=== PATIENT | male | born 1960 | race Caucasian/White ===

== ENCOUNTER 2021-07-31 23:59 | Emergency (ER) | payer OTHER ==
[2021-08-01 00:32] LABS: #Eosinphils 0.3 10x3/uL (0.0-0.5); #Monocytes 1.1 10x3/uL (0.0-1.1); #Neutrophils 7.2 10x3/uL (1.5-8.4); %Basophils 0.4 % (0.0-2.0); %Eosinophils 2.9 % (0.0-6.0); %Lymphocytes 18.7 % (18.0-47.0); %Monocytes 10.1 % (0.0-10.0); %Neutrophils 67.3 % (40.0-75.0); Hemoglobin 14.9 g/dL (13.5-17.5); Mean Corpuscular HGB CONC 34.3 g/dL (32.0-36.0); Mean Corpuscular Hemoglobin 28.9 pg (27.0-33.0); Mean Corpuscular Volume 84.5 fl (81.2-95.1); Mean Platelet Volume 8.8 fl (7.4-10.4); Platelet Count 285 10x3/uL (150-450); RBC Distribution Width 12.9 % (11.5-14.5); Red Blood Cell (RBC) Count 5.15 10x6/uL (4.32-5.72); White Blood Cell (WBC) Count 10.6 10x3/uL (3.5-10.5)
[2021-08-01] MEDS ORDERED: Aspirin 325 MG TAB ONE (00:34)
[2021-08-01] MEDS ORDERED: Ketorolac Tromethamine 30 MG/ML VIAL ONE (00:34)
[2021-08-01 00:47] LABS: ALT (SGPT) 42 U/L (8-55); AST (SGOT) 34 U/L (5-34); Acetaminophen Less than 6.0 mcg/mL (10.0-30.0); Alcohol Less than 10 mg/dL (Less than 10); Alkaline Phosphatase 74 U/L (40-110); Anion Gap 13 mmol/L (10-20); BUN (Urea Nitrogen) 15 mg/dL (8.4-25.7); Bilirubin, Total 0.4 mg/dL (0.2-1.2); Calc. Creatinine Clearance 0 mL/min (70-130); Calcium 9.3 mg/dL (7.8-10.44); Carbon Dioxide 25 mmol/L (23-31); Chloride 102 mmol/L (98-107); Globulin 3.9 g/dL (2.4-3.5); Glucose 200 mg/dL (80-115); Lipase 26 U/L (8-78); Potassium 4.3 mmol/L (3.5-5.1); Protein, Total 7.9 g/dL (5.8-8.1); Salicylate Less than 8.0 mg/dL (15.0-30.0); Sodium 136 mmol/L (136-145)
[2021-08-01 02:07] LABS: Troponin I Less than 0.010 ng/mL (< 0.028)
== END 2021-08-01 02:59 | disposition home or self-care (01) ==
LOC: CSHERS 23:59
DX: R07.89 Other chest pain (principal); I10 Essential (primary) hypertension; E11.9 Type 2 diabetes mellitus without complications
CPT/HCPCS: 36416; 71045; 80053; 80307; 83690; 83880; 84484; 85025; 93005; 96372; J1885

== ENCOUNTER 2021-08-23 12:19 | Emergency (ER) | payer OTHER ==
[2021-08-23 13:54] LABS: #Eosinphils 0.2 10x3/uL (0.0-0.5); #Monocytes 0.8 10x3/uL (0.0-1.1); #Neutrophils 4.8 10x3/uL (1.5-8.4); %Basophils 0.3 % (0.0-2.0); %Eosinophils 3.1 % (0.0-6.0); %Lymphocytes 25.5 % (18.0-47.0); %Monocytes 9.8 % (0.0-10.0); %Neutrophils 60.9 % (40.0-75.0); Hemoglobin 15.5 g/dL (13.5-17.5); Mean Corpuscular HGB CONC 33.2 g/dL (32.0-36.0); Mean Corpuscular Hemoglobin 28.5 pg (27.0-33.0); Mean Corpuscular Volume 85.8 fl (81.2-95.1); Mean Platelet Volume 8.8 fl (7.4-10.4); Platelet Count 277 10x3/uL (150-450); RBC Distribution Width 13.4 % (11.5-14.5); Red Blood Cell (RBC) Count 5.44 10x6/uL (4.32-5.72); White Blood Cell (WBC) Count 7.8 10x3/uL (3.5-10.5)
[2021-08-23 14:11] LABS: ALT (SGPT) 28 U/L (8-55); AST (SGOT) 23 U/L (5-34); Alkaline Phosphatase 61 U/L (40-110); Anion Gap 11 mmol/L (10-20); BUN (Urea Nitrogen) 8 mg/dL (8.4-25.7); Bilirubin, Total 0.4 mg/dL (0.2-1.2); Calc. Creatinine Clearance 0 mL/min (70-130); Calcium 9.3 mg/dL (7.8-10.44); Carbon Dioxide 27 mmol/L (23-31); Chloride 101 mmol/L (98-107); Globulin 3.9 g/dL (2.4-3.5); Glucose 245 mg/dL (80-115); Lipase 6 U/L (8-78); Potassium 4.3 mmol/L (3.5-5.1); Protein, Total 7.9 g/dL (5.8-8.1); Sodium 135 mmol/L (136-145)
== END 2021-08-23 15:31 ==
LOC: CSHERS 12:19
DX: U07.1 COVID-19 (principal); E11.9 Type 2 diabetes mellitus without complications; I10 Essential (primary) hypertension; F17.200 Nicotine dependence, unspecified, uncomplicated; Z79.82 Long term (current) use of aspirin; Z79.4 Long term (current) use of insulin
CPT/HCPCS: 36415; 70450; 71045; 80053; 82140; 83690; 84443; 84484; 85025; 93005

== ENCOUNTER 2022-01-25 06:17 | Emergency (ER) | payer OTHER ==
[2022-01-25 06:42] LABS: #Eosinphils 0.1 10x3/uL (0.0-0.5); #Monocytes 0.7 10x3/uL (0.0-1.1); #Neutrophils 3.6 10x3/uL (1.5-8.4); %Basophils 0.3 % (0.0-2.0); %Eosinophils 1.7 % (0.0-6.0); %Lymphocytes 30.4 % (18.0-47.0); %Monocytes 11.1 % (0.0-10.0); %Neutrophils 56.2 % (40.0-75.0); Hemoglobin 14.4 g/dL (13.5-17.5); Mean Corpuscular HGB CONC 35.3 g/dL (32.0-36.0); Mean Corpuscular Volume 82.1 fl (81.2-95.1); Mean Platelet Volume 8.6 fl (7.4-10.4); Platelet Count 275 10x3/uL (150-450); Red Blood Cell (RBC) Count 4.97 10x6/uL (4.32-5.72); White Blood Cell (WBC) Count 6.3 10x3/uL (3.5-10.5)
[2022-01-25 07:00] LABS: Bilirubin Neg (Negative); Blood, Urine Negative (Negative); Clarity Clear (Clear); Glucose, Urine (Dipstick) >=1000 mg/dL (Negative); Ketone, Urine Negative (Negative); Leukocyte Negative (Negative); Nitrite Negative (Negative); Protein, Urine (Dipstick) 15 mg/dl (Neg-Trace); Urobilinogen Normal mg/dL (Less than 2)
[2022-01-25 07:05] LABS: ALT (SGPT) 75 U/L (8-55); AST (SGOT) 37 U/L (5-34); Acetaminophen Less than 10.0 mcg/mL (10.0-30.0); Albumin 3.9 g/dL (3.4-4.8); Alcohol Less than 10 mg/dL (Less than 10); Alkaline Phosphatase 59 U/L (40-110); Anion Gap 16 mmol/L (10-20); BUN (Urea Nitrogen) 16 mg/dL (8.4-25.7); Bilirubin, Total 0.3 mg/dL (0.2-1.2); Calc. Creatinine Clearance 0 mL/min (70-130); Carbon Dioxide 20 mmol/L (23-31); Chloride 99 mmol/L (98-107); Globulin 3.2 g/dL (2.4-3.5); Glucose 479 mg/dL (80-115); Potassium 4.3 mmol/L (3.5-5.1); Protein, Total 7.1 g/dL (5.8-8.1); Salicylate Less than 8.0 mg/dL (15.0-30.0); Sodium 131 mmol/L (136-145)
[2022-01-25 07:08] LABS: Amphetamine Not Detected (NotDetected); Barbiturates Screen Not Detected (NotDetected); Benzodiazepine Screen Not Detected (NotDetected); Cocaine Metabolite Screen Not Detected (NotDetected); Methadone Not Detected (NotDetected); Methamphetamine Not Detected (NotDetected); Opiate Screen Not Detected (NotDetected); Oxycodone Screen Not Detected (NotDetected); Phencyclidine (PCP) Not Detected (NotDetected); THC/Cannabinoid Screen Not Detected (NotDetected); Tricyclic Screen Not Detected (NotDetected)
[2022-01-25] MEDS ORDERED: Iopamidol 370 76% 100 ML VIAL ONE (08:00)
[2022-01-25] MEDS ORDERED: Ondansetron PF 4 MG/2 ML Vial ONE (08:09)
[2022-01-25] MEDS ORDERED: Insulin Regular 300 UNITS/3 ML VIAL ONE (08:13)
[2022-01-25 08:24] LABS: SARS-CoV-2 NAA Rapid Test Not Detected (NotDetected)
== END 2022-01-25 15:12 | disposition short-term general hospital (02) ==
LOC: EEVIPCON 06:17 → CSHERS 06:17
DX: E11.65 Type 2 diabetes mellitus with hyperglycemia (principal); R07.9 Chest pain, unspecified; Z20.822 Contact with and (suspected) exposure to COVID-19; I10 Essential (primary) hypertension; Z79.899 Other long term (current) drug therapy; Z79.4 Long term (current) use of insulin
CPT/HCPCS: 36416; 70450; 71045; 71275; 74174; 80053; 80306; 80307; 81003; 82140; 84484; 85025; 93005; 94760; 96374; 96375; J1815; J2405; Q9967; U0002

== ENCOUNTER 2022-05-14 11:20 | Emergency (ER) | payer OTHER ==
[2022-05-14] MEDS ORDERED: Ketorolac Tromethamine 30 MG/ML VIAL ONE (12:22)
[2022-05-14] MEDS ORDERED: Cefepime 2 GM VIAL ONE (12:22)
[2022-05-14 12:31] LABS: #Eosinphils 0.2 10x3/uL (0.0-0.5); #Monocytes 0.8 10x3/uL (0.0-1.1); #Neutrophils 8.8 10x3/uL (1.5-8.4); %Basophils 0.4 % (0.0-2.0); %Eosinophils 1.9 % (0.0-6.0); %Lymphocytes 13.4 % (18.0-47.0); %Monocytes 6.7 % (0.0-10.0); Hemoglobin 16.3 g/dL (13.5-17.5); Mean Corpuscular HGB CONC 34.9 g/dL (32.0-36.0); Mean Corpuscular Hemoglobin 29.8 pg (27.0-33.0); Mean Corpuscular Volume 85.4 fl (81.2-95.1); Mean Platelet Volume 8.7 fl (7.4-10.4); Platelet Count 483 10x3/uL (150-450); RBC Distribution Width 12.8 % (11.5-14.5); Red Blood Cell (RBC) Count 5.47 10x6/uL (4.32-5.72); White Blood Cell (WBC) Count 11.4 10x3/uL (3.5-10.5)
[2022-05-14 12:46] LABS: ALT (SGPT) 32 U/L (8-55); AST (SGOT) 30 U/L (5-34); Albumin 4.4 g/dL (3.4-4.8); Alkaline Phosphatase 70 U/L (40-110); Anion Gap 16 mmol/L (10-20); BUN (Urea Nitrogen) 14 mg/dL (8.4-25.7); Bilirubin, Total 0.5 mg/dL (0.2-1.2); Calc. Creatinine Clearance 0 mL/min (70-130); Calcium 9.6 mg/dL (7.8-10.44); Carbon Dioxide 21 mmol/L (23-31); Chloride 102 mmol/L (98-107); Estimated GFR 91; Globulin 3.9 g/dL (2.4-3.5); Glucose 301 mg/dL (80-115); Potassium 5.6 mmol/L (3.5-5.1); Protein, Total 8.3 g/dL (5.8-8.1); Sodium 133 mmol/L (136-145)
[2022-05-14] MEDS ORDERED: Morphine 4 MG/ML VIAL ONE (14:17)
[2022-05-14 14:42] LABS: Bilirubin Neg (Negative); Blood, Urine 50 (Negative); Clarity Clear (Clear); Glucose, Urine (Dipstick) >=1000 mg/dL (Negative); Ketone, Urine 15 mg/dL (Negative); Leukocyte Negative (Negative); Nitrite Negative (Negative); Protein, Urine (Dipstick) 100 mg/dl (Neg-Trace); Specific Gravity, Urine 1.015 (1.005-1.030)
[2022-05-14 14:50] LABS: Squamous Epithelial 0-3 HPF (0-3)
[2022-05-14 14:51] LABS: Bacteria/HPF 2+ HPF (None Seen); Mucous/LPF 2+ LPF (<2+)
[2022-05-14 15:11] LABS: SARS-CoV-2 NAA Rapid Test Not Detected (NotDetected)
== END 2022-05-14 17:30 | disposition short-term general hospital (02) ==
LOC: EEVIPCON 11:20 → CSHERS 11:20
DX: L03.116 Cellulitis of left lower limb (principal); E11.9 Type 2 diabetes mellitus without complications; I10 Essential (primary) hypertension; Z20.822 Contact with and (suspected) exposure to COVID-19
CPT/HCPCS: 36415; 80053; 81003; 81015; 83605; 85025; 86140; 87040; 87070; 87077; 87086; 87186; 87205; 93005; 96361; 96365; 96366; 96367; 96375; J0692; J1885; J2270; J3370; U0002

== ENCOUNTER 2023-02-13 12:03 | Inpatient (IN) | payer OTHER ==
[~2023-02-13 12:03] MED LIST: Iopamidol 370 76% 100 ML VIAL ONE
[2023-02-13 12:53] LABS: #Eosinphils 0.1 10x3/uL (0.0-0.5); #Monocytes 0.7 10x3/uL (0.0-1.1); #Neutrophils 5.2 10x3/uL (1.5-8.4); %Basophils 0.2 % (0.0-2.0); %Eosinophils 1.5 % (0.0-6.0); %Lymphocytes 34.2 % (18.0-47.0); %Monocytes 7.7 % (0.0-10.0); %Neutrophils 56.1 % (40.0-75.0); Hemoglobin 15.4 g/dL (13.5-17.5); Mean Corpuscular HGB CONC 35.2 g/dL (32.0-36.0); Mean Corpuscular Hemoglobin 28.9 pg (27.0-33.0); Mean Corpuscular Volume 82.2 fl (81.2-95.1); Mean Platelet Volume 9.4 fl (7.4-10.4); Platelet Count 349 10x3/uL (150-450); RBC Distribution Width 12.6 % (11.5-14.5); Red Blood Cell (RBC) Count 5.33 10x6/uL (4.32-5.72); White Blood Cell (WBC) Count 9.3 10x3/uL (3.5-10.5)
[2023-02-13 13:07] LABS: ALT (SGPT) 12 U/L (8-55); AST (SGOT) 17 U/L (5-34); Albumin 4.4 g/dL (3.4-4.8); Alkaline Phosphatase 83 U/L (40-110); Anion Gap 21 mmol/L (10-20); BUN (Urea Nitrogen) 12 mg/dL (8.4-25.7); Bilirubin, Total 0.7 mg/dL (0.2-1.2); CK (CPK) 100 U/L (30-200); Calc. Creatinine Clearance 0 mL/min (70-130); Calcium 9.6 mg/dL (7.8-10.44); Carbon Dioxide 16 mmol/L (23-31); Chloride 102 mmol/L (98-107); Estimated GFR 84; Globulin 3.3 g/dL (2.4-3.5); Lipase 9 U/L (8-78); Potassium 4.9 mmol/L (3.5-5.1); Protein, Total 7.7 g/dL (5.8-8.1); Sodium 134 mmol/L (136-145)
[2023-02-13 13:09] LABS: Glucose 456 mg/dL (80-115)
[2023-02-13 14:05] LABS: Actual Bicarbonate (HCO3v) 18.8 mEq/L (22-28); Base Excess -4.5 mEq/L (-2 - +2); Calcium, Ionized (venous) 1.09 mmol/L (1.16-1.32); Chloride (VBG) 104 mmol/L (98-106); Hematocrit-VBG 43 % (42.0-52.0); Hemoglobin (Hb) 14.5 g/dL (13.1-17.2); Puncture Site Other Site; Sodium 136.4 mmol/L (133-146); pH (venous) 7.413 (7.32-7.43)
[2023-02-13 14:11] LABS: Bilirubin Neg (Negative); Blood, Urine 150 (Negative); Clarity Clear (Clear); Glucose, Urine (Dipstick) >=1000 mg/dL (Negative); Ketone, Urine 5 mg/dL (Negative); Leukocyte Negative (Negative); Nitrite Negative (Negative); Protein, Urine (Dipstick) 100 mg/dl (Neg-Trace); Urobilinogen Normal mg/dL (Less than 2); pH, Urine 6.5 (5.0-9.0)
[2023-02-13 14:34] LABS: Bacteria/HPF Rare-Few HPF (None Seen); CAUTI Indications for Culture Pelvic or flank pain; Squamous Epithelial 0-3 HPF (0-3); Urine Culture Reflex No No; WBC/HPF 0-3 HPF (0-3)
[2023-02-13] MEDS ORDERED: Aspirin Chewable 81 MG TAB ONE (14:35)
[2023-02-13] MEDS ORDERED: INSULIN REGULAR IN 0.9 % NACL 100 UNITS/100 ML BAG ONE (14:36)
[2023-02-13] MEDS ORDERED: Acetaminophen 650 MG Suppository PR PRN (15:38)
[2023-02-13] MEDS ORDERED: Ondansetron ODT 4 MG TAB PO PRN (15:38)
[2023-02-13] MEDS ORDERED: Acetaminophen 325 MG TAB PO PRN (15:38)
[2023-02-13] MEDS ORDERED: Ondansetron PF 4 MG/2 ML Vial IVP PRN (15:38)
[2023-02-13] MEDS ORDERED: Glucagon 1 MG/ML KIT IM PRN (15:42)
[2023-02-13] MEDS ORDERED: Dextrose 50% Abboject 50 ML SYRINGE SLOW IVP PRN (15:42)
[2023-02-13] MEDS ORDERED: Dextrose 5% in Water 1,000 ML IV PRN (15:42)
[2023-02-13] MEDS ORDERED: Insulin Regular 300 UNITS/3 ML VIAL SC SCH (15:45)
[2023-02-13 16:38] VITALS: BMI 25.0
[2023-02-14 04:48] LABS: #Eosinphils 0.2 10x3/uL (0.0-0.5); #Monocytes 0.6 10x3/uL (0.0-1.1); %Basophils 0.5 % (0.0-2.0); %Eosinophils 2.7 % (0.0-6.0); %Lymphocytes 30.3 % (18.0-47.0); %Monocytes 6.7 % (0.0-10.0); %Neutrophils 59.4 % (40.0-75.0); Hemoglobin 14.1 g/dL (13.5-17.5); Mean Corpuscular HGB CONC 34.1 g/dL (32.0-36.0); Mean Corpuscular Hemoglobin 28.9 pg (27.0-33.0); Mean Corpuscular Volume 84.8 fl (81.2-95.1); Mean Platelet Volume 9.4 fl (7.4-10.4); Platelet Count 291 10x3/uL (150-450); RBC Distribution Width 12.7 % (11.5-14.5); Red Blood Cell (RBC) Count 4.88 10x6/uL (4.32-5.72); White Blood Cell (WBC) Count 8.4 10x3/uL (3.5-10.5)
[2023-02-14 05:06] LABS: Anion Gap 13 mmol/L (10-20); BUN (Urea Nitrogen) 9 mg/dL (8.4-25.7); Calc. Creatinine Clearance 100 mL/min (70-130); Calcium 8.8 mg/dL (7.8-10.44); Carbon Dioxide 19 mmol/L (23-31); Chloride 107 mmol/L (98-107); Estimated GFR 99; Glucose 275 mg/dL (80-115); Potassium 4.3 mmol/L (3.5-5.1); Sodium 135 mmol/L (136-145)
[2023-02-14] MEDS: HumaLOG 300 UNITS/3 ML VIAL SC PRN ×4 (06:24→16:32)
[2023-02-14] MEDS ORDERED: Nitroglycerin 0.4 MG TAB (25 Tab Bottle) SL PRN (08:16)
[2023-02-14] MEDS ORDERED: Morphine 2 MG/ML VIAL SLOW IVP PRN (08:17)
[2023-02-14] MEDS ORDERED: Nitroglycerin 0.4 MG TAB (25 Tab Bottle) ONE (08:32)
[2023-02-14] MEDS ORDERED: Aspirin 81 mg Enteric Coated Tablet PO SCH (09:00)
[2023-02-14] MEDS ORDERED: Ibuprofen 600 MG TAB PO SCH (15:00)
[2023-02-14 19:42] VITALS: BP 144/91; TEMP 98.1
== END 2023-02-14 19:43 | DRG 313 ==
LOC: EEVIPCON 12:03 → CSHERS 12:03 → CSHTELE 16:14
PROVIDERS: ADMIT Internal Medicine; ATTEND Internal Medicine
PROC: 4A033R1 Measurement of Arterial Saturation, Peripheral, Percutaneous Approach (ICD-10-PCS; principal; 2023-02-13)
DX: R07.89 Other chest pain (principal); I10 Essential (primary) hypertension; E78.5 Hyperlipidemia, unspecified; E11.65 Type 2 diabetes mellitus with hyperglycemia; N40.0 Benign prostatic hyperplasia without lower urinary tract symptoms; M19.90 Unspecified osteoarthritis, unspecified site; F32.A Depression, unspecified; G89.29 Other chronic pain; M54.9 Dorsalgia, unspecified; Z91.148 Patient's other noncompliance with medication regimen for other reason; Z79.899 Other long term (current) drug therapy; Z79.82 Long term (current) use of aspirin; Z79.84 Long term (current) use of oral hypoglycemic drugs; Z82.49 Family history of ischemic heart disease and other diseases of the circulatory system; Z82.3 Family history of stroke; B19.20 Unspecified viral hepatitis C without hepatic coma
CPT/HCPCS: 36415; 36416; 71045; 71275; 74174; 80048; 80053; 81001; 82010; 82550; 82805; 83690; 83880; 83930; 84484; 85025; 93005; 93010; 94760; 96361; 96365; J1815; Q9967

== ENCOUNTER 2023-02-15 13:16 | Emergency (ER) | payer OTHER ==
[2023-02-15 14:13] LABS: #Eosinphils 0.1 10x3/uL (0.0-0.5); #Monocytes 0.5 10x3/uL (0.0-1.1); %Basophils 0.2 % (0.0-2.0); %Lymphocytes 22.4 % (18.0-47.0); %Monocytes 8.9 % (0.0-10.0); %Neutrophils 66.2 % (40.0-75.0); Hemoglobin 13.6 g/dL (13.5-17.5); Mean Corpuscular HGB CONC 34.3 g/dL (32.0-36.0); Mean Corpuscular Hemoglobin 28.9 pg (27.0-33.0); Mean Corpuscular Volume 84.3 fl (81.2-95.1); Mean Platelet Volume 9.2 fl (7.4-10.4); Platelet Count 300 10x3/uL (150-450); RBC Distribution Width 12.7 % (11.5-14.5)
[2023-02-15 14:24] LABS: Acetaminophen Less than 10 mcg/mL (10.0-30.0); Alcohol Less than 10.0 mg/dL (Less than 10); Lipase 11 U/L (8-78); Salicylate Less than 8.0 mg/dL (15.0-30.0)
[2023-02-15 14:26] LABS: ALT (SGPT) 13 U/L (8-55); AST (SGOT) 18 U/L (5-34); Albumin 3.7 g/dL (3.4-4.8); Alkaline Phosphatase 66 U/L (40-110); Anion Gap 12 mmol/L (10-20); BUN (Urea Nitrogen) 12 mg/dL (8.4-25.7); Bilirubin, Total 0.5 mg/dL (0.2-1.2); Calc. Creatinine Clearance 0 mL/min (70-130); Calcium 8.6 mg/dL (7.8-10.44); Carbon Dioxide 23 mmol/L (23-31); Chloride 102 mmol/L (98-107); Estimated GFR 97; Glucose 339 mg/dL (80-115); Potassium 3.9 mmol/L (3.5-5.1); Protein, Total 6.7 g/dL (5.8-8.1); Sodium 133 mmol/L (136-145)
== END 2023-02-15 15:36 ==
LOC: CSHERS 13:16
DX: E11.65 Type 2 diabetes mellitus with hyperglycemia (principal); I10 Essential (primary) hypertension; Z79.4 Long term (current) use of insulin
CPT/HCPCS: 36416; 70450; 80053; 80307; 82140; 83690; 84484; 85025; 85379; 93005

== ENCOUNTER 2023-05-30 09:43 | Emergency (ER) | payer OTHER ==
[2023-05-30 10:47] LABS: #Eosinphils 0.2 10x3/uL (0.0-0.5); #Monocytes 0.6 10x3/uL (0.0-1.1); #Neutrophils 5.2 10x3/uL (1.5-8.4); %Basophils 0.2 % (0.0-2.0); %Lymphocytes 24.6 % (18.0-47.0); %Monocytes 7.9 % (0.0-10.0); %Neutrophils 65.1 % (40.0-75.0); Hematocrit 42.4 % (38.8-50.0); Hemoglobin 15.2 g/dL (13.5-17.5); Mean Corpuscular HGB CONC 35.8 g/dL (32.0-36.0); Mean Corpuscular Hemoglobin 29.9 pg (27.0-33.0); Mean Corpuscular Volume 83.3 fl (81.2-95.1); Mean Platelet Volume 9.2 fl (7.4-10.4); Platelet Count 307 10x3/uL (150-450); RBC Distribution Width 12.8 % (11.5-14.5); Red Blood Cell (RBC) Count 5.09 10x6/uL (4.32-5.72); White Blood Cell (WBC) Count 8.1 10x3/uL (3.5-10.5)
[2023-05-30 10:51] LABS: ALT (SGPT) 15 U/L (8-55); AST (SGOT) 17 U/L (5-34); Alkaline Phosphatase 68 U/L (40-110); Anion Gap 13 mmol/L (10-20); BUN (Urea Nitrogen) 16 mg/dL (8.4-25.7); Bilirubin, Total 0.5 mg/dL (0.2-1.2); Calc. Creatinine Clearance 0 mL/min (70-130); Calcium 9.2 mg/dL (7.8-10.44); Carbon Dioxide 23 mmol/L (23-31); Chloride 105 mmol/L (98-107); Estimated GFR 100; Globulin 3.2 g/dL (2.4-3.5); Glucose 106 mg/dL (80-115); Protein, Total 7.2 g/dL (5.8-8.1); Sodium 137 mmol/L (136-145)
[2023-05-30 10:54] LABS: Troponin I Less than 0.010 ng/mL (< 0.028)
== END 2023-05-30 11:43 ==
LOC: CSHERS 09:43 → EEVIPCON 09:43 → CSHERS 11:43
DX: R07.9 Chest pain, unspecified (principal); R56.9 Unspecified convulsions; E11.9 Type 2 diabetes mellitus without complications; I10 Essential (primary) hypertension; Z79.4 Long term (current) use of insulin; Z79.82 Long term (current) use of aspirin; Z79.899 Other long term (current) drug therapy
CPT/HCPCS: 36415; 36416; 70450; 71045; 80053; 84484; 85025; 93005

== ENCOUNTER 2023-05-30 15:41 | Emergency (ER) | payer OTHER | END 2023-05-30 17:50 | LOC: EEVIPCON 15:41 → CSHERS 15:41 | DX: M54.9 Dorsalgia, unspecified (principal); G89.29 Other chronic pain; R56.9 Unspecified convulsions; E11.9 Type 2 diabetes mellitus without complications; I10 Essential (primary) hypertension | CPT/HCPCS: 99284 ==